=== PATIENT | female | born 1950 | race Caucasian/White ===

== ENCOUNTER 2023-06-26 14:02 | Emergency (ER) | payer OTHER ==
[2023-06-26 14:25] LABS: Absolute Lymphocytes (CBC) 1.7 K/uL (0.7-4.9); Hematocrit 45.1 % (36.0-45.0); Lymphocytes % 15.7 % (15.3-44.8); MCV 94.8 fL (80-100); MPV 9.4 fL (7.6-11.3); Platelets 286 thou/uL (152-406); RBC Red Blood Cell Count 4.76 M/uL (3.86-4.86)
--- NOTE | 2023-06-26 14:53 | RAD REPORT ---
EXAM DESCRIPTION: RAD - Chest Single View - 06/26/2023 2:45 pm CLINICAL HISTORY: PALPITATIONS Chest pain. COMPARISON: <Comparisons> FINDINGS: Portable technique limits examination quality. The lungs are emphysematous but grossly clear. The heart is normal in size. No displaced fractures. IMPRESSION: No acute intrathoracic process suspected.
[2023-06-26 15:00] LABS: Potassium 3.6 mEq/L (3.5-5.1); Thyroid Stimulating Hormone 0.368 uIU/mL (0.358-3.740); Troponin High Sensitivity 6.4 pg/mL (<58.9)
--- NOTE | 2023-06-26 15:05 | EDPHYS ---
Physician Documentation [facility] Name: Jaci Bauer Age: 72 yrs Sex: Female : 1950 Arrival Date: 06/26/2023 Time: 14:02 Bed 19 Private MD: ED Physician Opal Pena HPI: 06/26 14:48 This 72 yrs old Female presents to ER via Ambulatory with complaints of Palpitations. kb 14:48 The patient presents with a history of irregular heart beat, heart racing. Context: The kb symptoms occur at rest. Onset: The symptoms/episode began/occurred just prior to arrival. Duration: The patient or guardian reports a single episode, that is now resolved. Modifying factors: The symptoms are aggravated by nothing. The symptoms are alleviated by nothing. Associated signs and symptoms: Pertinent negatives: anxiety, chest pain, lightheadedness, SOB. Severity of symptoms: At their worst the symptoms were mild moderate in the emergency department the symptoms have resolved. The patient has not experienced similar symptoms in the past. The patient has been recently seen by a physician:. Pt reports she started having palpitations after lunch today. States she is taking prednisone for poison trevon and believes that is the cause. Historical: - Allergies: 14:14 PENICILLINS; nj1 - Immunization history:: Client reports receiving the 2nd dose of the Covid vaccine. - Social history:: Smoking status: Patient denies any tobacco usage or history of. ROS: 14:48 Constitutional: Negative for fever, chills, and weight loss. kb 14:48 Cardiovascular: Positive for palpitations, Negative for chest pain. 14:48 All other systems are negative. Exam: 14:47 Constitutional: This is a well developed, well nourished patient who is awake, alert, kb and in no acute distress. Head/Face: Normocephalic, atraumatic. ENT: Moist Mucous membranes Chest/axilla: Normal chest wall appearance and motion. Cardiovascular: Regular rate and rhythm with a normal S1 and S2. No gallops, murmurs, or rubs. No pulse deficits. Respiratory: Respirations even and unlabored. No increased work of breathing. Talking in full sentences Abdomen/GI: Soft, non-tender. No distention Skin: Warm, dry with normal turgor. Normal color. MS/ Extremity: Pulses equal, no cyanosis. Neurovascular intact. Full, normal range of motion. Neuro: Awake and alert, GCS 15, oriented to person, place, time, and situation. Moves all extremities. Normal gait. 14:47 ECG was reviewed by the Attending Physician. Vital Signs: 14:05 BP 139 / 86; Pulse 102; Resp 17; Pulse Ox 97% on R/A; Weight 52.62 kg; Height 5 ft. 5 nj1 in. ; 14:44 BP 114 / 85; Pulse 81; Pulse Ox 98% on R/A; ap3 14:05 Body Mass Index 19.30 (52.62 kg, 165.1 cm) nj1 MDM: 14:05 Patient medically screened. kb 14:46 Data reviewed: vital signs, nurses notes. Management of patient was discussed with the kb following: Primary Care Provider: Dr Sims. In agreement with outpatient follow up. Pt can stop prednisone . 14:48 Differential diagnosis: arrythmia, dehydration, stress disorder. kb 15:05 Counseling: I had a detailed discussion with the patient and/or guardian regarding: the kb historical points, exam findings, and any diagnostic results supporting the discharge/admit diagnosis, lab results, radiology results, the need for outpatient follow up, a family practitioner, to return to the emergency department if symptoms worsen or persist or if there are any questions or concerns that arise at home. 06/26 14:15 Order name: Basic Metabolic Panel; Complete Time: 15:00 kb 06/26 14:15 Order name: CBC with Diff; Complete Time: 14:27 kb 06/26 14:15 Order name: Troponin HS; Complete Time: 15:00 kb 06/26 14:15 Order name: TSH; Complete Time: 15:00 kb 06/26 14:15 Order name: XRAY Chest (1 view); Complete Time: 14:54 kb 06/26 14:15 Order name: EKG; Complete Time: 14:15 kb 06/26 14:15 Order name: Cardiac monitoring; Complete Time: 14:20 kb 06/26 14:15 Order name: EKG - Nurse/Tech; Complete Time: 14:20 kb 06/26 14:15 Order name: IV Saline Lock; Complete Time: 14:15 kb 06/26 14:15 Order name: Labs collected and sent; Complete Time: 14:20 kb 06/26 14:15 Order name: O2 Per Protocol; Complete Time: 14:15 kb 06/26 14:15 Order name: O2 Sat Monitoring; Complete Time: 14:15 kb EC:47 Rate is 87 beats/min. Rhythm is regular. QRS [place] is Normal. LA interval is normal at kb 124 msec. QRS interval is normal at 70 msec. QT interval is normal at 442 msec. Administered Medications: No medications were administered Disposition: 14:53 I reviewed the patient's care provided by Advanced Practice Provider \T\ agree w/ the cp3 diagnosis \T\ care plan. I personally saw the pt \T\ performed a substantive portion of the visit, incldng all aspects of the (History/Exam/Medical Decision Making). ED attending note: The patient is a 72-year-old patient of who presents to the ED secondary to several minutes of heart racing sensation prior to arrival that have now resolved. Patient denies chest pain, shortness of breath, neurologic change. On exam patient awake and alert, GCS of 15 regular rate and rhythm, lungs are clear to auscultation abdominal exam negative acute for peritoneal signs. Patient is ambulatory without assistance. Patient is without any changes to the skin. EKG showed normal sinus rhythm with a rate of 87. Case reviewed with patient's primary care physician. Agree with plan. Disposition Summary: 06/26/23 15:05 Discharge Ordered Location: Home kb Condition: Stable kb Diagnosis - Palpitations kb Followup: kb - With: Emergency Department - When: As needed - Reason: Worsening of condition Followup: kb - With: Private Physician - When: 2 - 3 days - Reason: Recheck today's complaints, Continuance of care, Re-evaluation by your physician Discharge Instructions: - Discharge Summary Sheet kb - Palpitations, [id number] kb Forms: - Medication Reconciliation Form kb - Thank You Letter kb - Antibiotic Education kb - Prescription Opioid Use kb - Patient Portal Instructions kb Signatures: Dispatcher [employer] Annabelle Rueda FNP-C FNP-Ckb Pinckney, Cwanza, MD MD cp3 Leann Sanchez RN RN nj1 Corrections: (The following items were deleted from the chart) 14:15 14:14 Allergies: No Known Allergies; nj1 nj1
--- NOTE | 2023-06-26 15:05 | ER ---
Nurse's Notes [facility] Name: Jaci B[facility] Age: 72 yrs Sex: Female : 1950 Arrival Date: 06/26/2023 Time: 14:02 Bed 19 Private MD: Diagnosis: Palpitations Presentation: 06/26 14:05 Chief complaint: Patient states: [place] heart palpitations after lunch today, somewhat nj1 better but still different than normal. States her heart rate was 137 when she normally runs in the 60's. Pt states she was recently dx with poison trevon, given prednisone rx. States that yesterday she took the steroid as well as her Xyzal and started feeling funny, unsure if that's why. 14:05 Coronavirus screen: Vaccine status: Patient reports receiving the 2nd dose of the covid nj1 vaccine. Ebola Screen: Patient denies travel to an Ebola-affected area in the 21 days before illness onset. Risk Assessment: Do you want to hurt yourself or someone else? Patient reports no desire to harm self or others. Onset of symptoms was June 26, 2023. 14:05 Method Of Arrival: Ambulatory banner 14:05 Acuity: YVES 3 nj1 14:15 Initial Sepsis Screen: Does the patient meet any 2 criteria? No. Patient's initial ap3 sepsis screen is negative. Does the patient have a suspected source of infection? No. Patient's initial sepsis screen is negative. Historical: - Allergies: 14:14 PENICILLINS; nj1 - Immunization history:: Client reports receiving the 2nd dose of the Covid vaccine. - Social history:: Smoking status: Patient denies any tobacco usage or history of. Screenin:14 [facility] ED Fall Risk Assessment (Adult) History of falling in the last 3 months, ap3 including since admission. Abuse screen: Denies threats or abuse. Nutritional screening: No deficits noted. Tuberculosis screening: No symptoms or risk factors identified. Assessment: 14:13 General: Appears in no apparent distress. Behavior is calm, cooperative, appropriate ap3 for age. Pain: Denies pain. Neuro: Level of Consciousness is awake, alert, obeys commands, Oriented to person, place, time, situation. Cardiovascular: Reports palpitations, Patient's skin is warm and dry. Respiratory: Airway is patent Respiratory effort is even, unlabored, Respiratory pattern is regular, symmetrical. Vital Signs: 14:05 BP 139 / 86; Pulse 102; Resp 17; Pulse Ox 97% on R/A; Weight 52.62 kg; Height 5 ft. 5 nj1 in. ; 14:44 BP 114 / 85; Pulse 81; Pulse Ox 98% on R/A; ap3 14:05 Body Mass Index 19.30 (52.62 kg, 165.1 cm) nj1 ED Course: 14:03 Patient arrived in ED. rg4 14:04 [facility]abel[facility] Velez [facility]C [facility]. kb 14:04 Opal Pena MD is Attending Physician. kb 14:05 Corie Mata, PAULETTE is Primary Nurse. ap3 14:11 Inserted saline lock: 20 gauge in right antecubital area, using aseptic technique. ap3 Blood collected. 14:14 Triage completed. nj1 14:14 Patient has correct armband on for positive identification. Bed in low position. Call ap3 light in reach. Side rails up X 1. clean rice broker on. Pulse ox on. NIBP on. Door closed. Noise minimized. 14:15 Arm band placed on right wrist. nj1 14:18 EKG done, by ED staff. tm3 14:19 Initial lab(s) drawn, by me, sent to lab. ap3 14:47 XRAY Chest (1 view) In Process Unspecified. EDMS 15:11 No provider procedures requiring assistance completed. IV discontinued, intact, ap3 bleeding controlled, No redness/swelling at site. Pressure dressing applied. 15:11 Provided Education on: discharge instructions. ap3 Administered Medications: No medications were administered Medication: 15:11 VIS not applicable for this client. ap3 Outcome: 15:05 Discharge ordered by . kb 15:11 Discharged to home ambulatory. ap3 15:11 Condition: good 15:11 Discharge instructions given to patient, Instructed on discharge instructions, follow up and referral plans. Demonstrated understanding of instructions, follow-up care. 15:15 Patient left the ED. ap3 Signatures: Dispatcher [employer] EDMS Annabelle Velez FNP-C FNP-Ckb Malecha, Toni tm3 Richelle Guillory rg4 Corie Mata RN RN ap3 Leann Sanchez RN RN nj1 Corrections: (The following items were deleted from the chart) 14:15 14:14 Allergies: No Known Allergies; nj1 nj1
[2023-06-26 15:33] VITALS: BP 114/85; O2SAT 98
--- NOTE | 2023-06-28 15:32 | EKG ---
Test Date: 2023-06-26 Test Time: 14:16:08 Top Dyeing Machine Tender: GREG MEASUREMENT RESULTS: Intervals: Rate: 87 PA: 124 QRSD: 70 QT: 368 QTc: 442 [place]: P: 87 PA: 124 QRS: 88 T: 74 INTERPRETIVE STATEMENTS: Normal sinus rhythm Nonspecific ST abnormality Abnormal ECG Compared to ECG 03/19/1999 07:17:00 ST (T wave) deviation now present Electronically Signed On 06-28-23 15:30:19 CDT by Fernando Kelsey
== END 2023-06-26 15:15 | disposition home or self-care (01) ==
LOC: ER 14:02
DX: R00.2 Palpitations (principal); Z88.0 Allergy status to penicillin
CPT/HCPCS: 36415; 71045; 80048; 84443; 84484; 85025; 93005; 99284